=== PATIENT | female | born 1990 ===

== ENCOUNTER 2018-08-30 22:52 | Emergency (ER) | payer MEDICAID ==
[2018-08-31 01:30] LABS: Bacteria,Urine 2+ /HPF (Negative); Bilirubin,Urine NEG (Negative); Blood,Urine SM (Negative); Color,Urine Amber (Yellow); Mucus,Urine 3+ /HPF; Urobilinogen,Urine < 2.0 mg/dL (<2.0)
[2018-08-31 01:31] LABS: HCG Qualitative,Urine Negative (Negative)
[2018-08-31] MEDS ORDERED: MACROBID PO ONE (01:43)
--- NOTE | 2018-08-31 02:15 | Emergency Department Report ---
HPI - General Chief Complaint: Urogenital-Female Time Seen by Provider: 08/31/18 00:27 - HPI HPI: 28-year-old AA female presents to the emergency department with a complaint of some vaginal swelling, burning with urination, and some mild vaginal discharge. The patient says that the vaginal swelling has been going on for the past 3 days. The discharge and burning with urination just started within the last 24 hours. She has not taken anything for her symptoms prior to presentation. She has a past medical history of anemia. No recent travel or sick contacts at home. ED Past Medical Hx - Past Medical History Previous Medical History?: Yes Additional medical history: anemia - Surgical History Hx Cholecystectomy: Yes - Social History Smoking Status: Never Smoker Substance Use Type: Marijuana - Medications Home Medications: Home Medications Medication Instructions Recorded Confirmed Last Taken Type Nitrofurantoin Monohyd/M-Cryst 100 mg PO BID #14 capsule 12/30/16 Unknown Rx [Macrobid 100 mg Capsule] Pnv No.95/Ferrous Fum/Folic AC 1 each PO DAILY #60 tablet 12/30/16 Unknown Rx [ Formula Tablet] Fluconazole [Diflucan TAB] 150 mg PO ONCE #1 tablet 08/31/18 Unknown Rx Nitrofurantoin Pondera/M-Cryst 100 mg PO Q12HR #14 capsule 08/31/18 Unknown Rx [Macrobid CAP] metroNIDAZOLE [Flagyl] 500 mg PO Q12HR #14 tab 08/31/18 Unknown Rx ED Review of Systems ROS: Stated complaint: VAGINAL SWELLING AND BURNING Other details as noted in HPI Comment: All other systems reviewed and negative Constitutional: denies: chills, fever Gastrointestinal: denies: abdominal pain, vomiting Genitourinary: dysuria, discharge Musculoskeletal: denies: back pain, arthralgia Skin: denies: rash, lesions Physical Exam - Physical Exam Vital Signs: Vital Signs 08/30/18 23:03 Temperature 98.5 F Pulse Rate 88 Respiratory 19 Rate Blood Pressure 119/69 O2 Sat by Pulse 98 Oximetry Physical Exam: GENERAL: The patient is well-developed well-nourished. HENT: Normocephalic. Atraumatic. Patient has moist mucous membranes. EYES: Extraocular motions are intact. NECK: Supple. Trachea is midline. CHEST/LUNGS: Clear to auscultation. There is no respiratory distress noted. HEART/CARDIOVASCULAR: Regular. There is no tachycardia. There is no murmur. ABDOMEN: Abdomen is soft, nontender. Patient has normal bowel sounds. There is no abdominal distention. SKIN: Skin is warm and dry. NEURO: The patient is awake, alert, and oriented. The patient is cooperative. The patient has no focal neurologic deficits. The patient has normal speech. MUSCULOSKELETAL: There is no tenderness or deformity. There is no evidence of acute injury. PELVIC: There is some mild erythema and inflammation to the bilateral labia. There is some thicker white discharge and some thin malodorous discharge within the vagina. ED Course Vital Signs 08/30/18 23:03 Temperature 98.5 F Pulse Rate 88 Respiratory 19 Rate Blood Pressure 119/69 O2 Sat by Pulse 98 Oximetry - Reevaluation(s) Reevaluation #1: The pelvic examination was done with nurse Manriquez at bedside as a mandrel press hand. 08/31/18 06:23 ED Medical Decision Making - Medical Decision Making Patient presented to the emergency department with a complaint of some vaginal burning and swelling and more recently some dysuria and vaginal discharge. Urinalysis shows a urinary tract infection and the patient will be treated with Macrobid. Her wet prep was positive for both yeast and bacterial vaginosis. She has been placed on Diflucan and Flagyl. Vital signs stable throughout her ED course. Patient is not . She says that she has good follow-up with primary care and [facility]. She will return to the emergency Department with any worsening of her symptoms or any acute distress. - Differential Diagnosis UTI, , vaginal candidiasis Critical Care Time: No Critical care attestation.: If time is entered above; I have spent that time in minutes in the direct care of this critically ill patient, excluding procedure time. ED Disposition Clinical Impression: Vulvovaginal candidiasis, BV (bacterial vaginosis) UTI (urinary tract infection) Qualifiers: Urinary tract infection type: acute cystitis Hematuria presence: without hematuria Qualified Code(s): N30.00 - Acute cystitis without hematuria Disposition: TO HOME OR SELFCARE Is pt being admited?: No Condition: Stable Instructions: Bacterial Vaginosis (ED), Urinary Tract Infection in Women (ED), Vulvovaginal Candidiasis (ED) Additional Instructions: Please follow-up with your primary care physician or [facility] in the next few days. Take the antibiotics and medications as prescribed. One of the medications, Flagyl/metronidazole, has a very bad and serious reaction if mixed with alcohol. If you drink on this medication, then you may start having serious nausea, vomiting and abdominal pains. Return to the emergency Department with any worsening of your symptoms or any acute distress. Prescriptions: Fluconazole [Diflucan TAB] 150 mg PO ONCE #1 tablet metroNIDAZOLE [Flagyl] 500 mg PO Q12HR #14 tab Nitrofurantoin Pondera/M-Cryst [Macrobid CAP] 100 mg PO Q12HR #14 capsule Referrals: SILVIA GALLARDO MD [Primary Care Provider] - 3-5 Days Forms: STI Treatment and Prevention, Work/School Release Form(ED) Time of Disposition: 02:30
[2018-08-31] MEDS ORDERED: DIFLUCAN PO ONE (02:27)
[2018-08-31 02:32] VITALS: BP 116/57
== END 2018-08-31 03:00 | disposition home or self-care (01) ==
LOC: ED 22:52
DX: B37.3 Candidiasis of vulva and vagina (principal); N76.0 Acute vaginitis; B96.89 Other specified bacterial agents as the cause of diseases classified elsewhere; N30.00 Acute cystitis without hematuria; D64.9 Anemia, unspecified; F12.90 Cannabis use, unspecified, uncomplicated; Z90.49 Acquired absence of other specified parts of digestive tract; Z79.899 Other long term (current) drug therapy
CPT/HCPCS: 81001; 81025; 87210; 87591